=== PATIENT | male | born 1990 | race Caucasian/White ===

== ENCOUNTER 2017-04-10 17:46 | Emergency (ER) | payer SELFPAY ==
[~2017-04-10] VITALS: Ht 175.3 cm; Wt 59.0 kg
[~2017-04-10 17:46] MED LIST: BACTRIM DS 8001 TAB PO; ETODOLAC400 MG PO; FLOMAX 0.4MG C0.4 MG PO; HYDROCODONE1 TABLET PO; KEFLEX500 M1 PO; LORTAB 5/500 501 TAB PO; MOTRIN600 MG PO; NOMEDS; NOMEDS XX; PEN-VK500 MG PO; PHENERGAN 25MG.25 M1 PO; TRAMADOL 50MG T50 MG PO; TYLENOL W/CODEI1 TA2 PO; VICODIN 5/500 T1 TAB PO; VISTARIL25 M1 PO; ZITHROMAX Z PA250 MG PO
--- OUTSIDE RECORDS SUMMARY | 2017-04-10 18:00 | External Medical Summary Rpt | CCD ---
Author Author , JADA Organization JADA Address Unknown Phone [email or web address] Care Team Providers Care Commercial Art Instructor Name Role Phone TRACY LELIA, Unavailable Unavailable TRACY LELIA BLAIR MOLINA, Unavailable Unavailable BLAIR MOLINA [facility], Unavailable Unavailable [facility] CORY MANDUJANO, Unavailable Unavailable CORY MANDUJANO [facility] Unavailable Unavailable INC, [facility] Unavailable Unavailable [facility]ING [facility], [facility] Unavailable Unavailable SERVICES, [facility] OCTAVIO MAS Unavailable Unavailable TERI OCTAVIO MAS Unavailable Unavailable TERI JAYDON DEMETRIO, JAYDON DEMETRIO Unavailable Unavailable ESTER ANGELINA, Unavailable Unavailable ESTER, ANGELINA [id number], Unavailable Unavailable [id number] Unavailable Unavailable [address] # [id number], [facility] [address] # 0393 RUPINDER CANCINO, Unavailable Unavailable BARAK RUPINDER SOKAN, DEANA O, Unavailable Unavailable SOKAN, DEANA O KENNEDY JAYDON DO, Unavailable Unavailable KENNEDY JAYDON DO WEHRMAN III BRANDON, Unavailable Unavailable WEHRMAN III BRANDON Purpose Continuity of Care Document - 07-24-2007 through 2016 Problems Code Diagnosis DOS Provider Status 9779 POISONING 09-20-2014 [place] [facility] DRUG/MEDICI NAL SUBSTANCE 88520 OTHER 09-19-2014 [place] ALTER[place] [address] OTHER 09-19-2014 [place] MALAISE AND MEDICAL FATIGUE [facility] 11738 HEMATURIA 05-18-2014 [place] UNSPECIFIED [facility] 90153 ABDOMINAL 05-18-2014 [place] PAIN, MEDICAL UNSPECIFIED IMAGING ASS SITE 5738 OTHER 05-07-2014 [place] SPECIFIED MEDICAL DISORDERS [facility]AGING ASS OF LIVER 5920 CALCULUS OF 05-07-2014 [place] KIDNEY [facility] 5921 CALCULUS OF 05-07-2014 [place] URETER [facility] 305.1 305.1 07-30-2013 [place] TOBACCO USE [facility] 19428 OSTEOARTHRO 07-30-2013 [place] SIS UNSPEC MEDICAL WHETHER IMAGING ASS GEN/LOCALIZ ED HAND 780.39 780.39 07-30-2013 [place] OTHER [facility] CONVULSIONS [facility] 40658 CLOSED 07-30-2013 [place] FRACTURE OF MEDICAL BASE OF IMAGING ASS THUMB METACARPAL BONE 816.00 816.00 FX 07-30-2013 [place] PHALANX, [facility] HAND NOS-CL Hospital 07306 CLOS 07-30-2013 [place] FRACTURE MEDICAL MID/PROXIMA IMAGING ASS L PHALANX/PHA LANG HAND 8170 MULTIPLE 07-30-2013 [facility] CLOSED EMERGENCY FRACTURES SERVICES OF HAND BONES E0032 ACT INVLV 07-30-2013 [facility] TOBOGGAN & TUBING E849.8 E849.8 07-30-2013 [place] ACCIDENT IN [facility] E885.4 E885.4 07-30-2013 [place] ACCIDENT [facility] DUE TO Hospital SNOWBOARD 6827 CELLULITIS 05-03-2011 [place] TERI AND ABSCESS OF FOOT EXCEPT TOES 8920 OPEN WOUND 05-03-2011 [place] FT NO TOE MEDICAL ALONE IMAGING ASS WITHOUT MENTION COMP 8930 OPEN WOUND 05-03-2011 [place] TERI TOE WITHOUT MENTION COMPLICATIO N E9208 ACC CAUSED 05-03-2011 [place] OT SPEC MEDICAL CUT&PIERCIN IMAGING ASS G INSTRUM/OBJ S V065 NEED 05-03-2011 [facility] INC VACCINATION W/TETANUS-D [facility] 09218 UNSPECIFIED 03-01-2011 [facility] CARIES INC 5259 UNSPECIFIED 03-01-2011 [facility] EMERGENCY TEETH&SUPPO SERVICES RTING STRUCTURES 4659 ACUTE URIS 03-02-2009 [facility] OF EMERGENCY UNSPECIFIED SERVICES SITE ASSOCIATES 2888 OTHER 12-09-2008 THEODORASTAD, SPECIFIED RUPINDER DISEASE OF WHITE BLOOD CELLS 2892 NONSPECIFIC 12-09-2008 BARAK, MESENTERIC [place] [address] ABDOMINAL 12-09-2008 [place] PAIN, LEFT MEDICAL LOWER IMAGING [facility] V1549 OTH PERS HX 10-05-2008 DEPT FOR PUBLIC [facility] PSYCHOLOGIC AL TRAUMA PRS HAZS [facility] 11101 UNSPECIFIED 06-17-2008 [facility] SITE OF [employer] SPRAIN AND STRAIN V202 ROUTINE 09-05-2007 A Bandar LEYVA OR [facility] CHILD HEALTH CHECK F19.10 OTHER PSYCHOACTIV E SUBSTANCE ABUSE, UNCOMPLICAT ED N20.0 CALCULUS OF KIDNEY R10.9 UNSPECIFIED ABDOMINAL PAIN R31.9 HEMATURIA, UNSPECIFIED S20.219A CONTUSION OF UNSPECIFIED FRONT WALL OF THORAX, INIT ENCNTR Z87.442 PERSONAL HISTORY OF URINARY CALCULI Allergies, Adverse Reactions, Alerts Type Drug Allergy Food Allergy Adverse Reaction to Substance Substance Reaction Severity Ibuprofen S-DKJBLP-RLVU/THROAT Severe SHELLFISH (FOOD) I-RASH Intermediate Medications Na ND Rx Da Fi Fi Am Da Di Ph RX Ph St me C No te ll ll ou ys ag ar # ys at rm s nt no ma ic us Or Da si cy ia de te s n re d 00 09 09 6. 1 RI 89 WE Ac 60 -0 -0 00 TE 81 HR ti 33 7- 7- 0 30 MA ve 88 20 20 AI N 12 11 11 D II 8 PH I AR WI MA LL CY IA M 03 E 93 8 # 03 93 AZ 59 09 09 00 6. 5 RI 79 SO Ac IT 76 -0 -2 00 TE 91 KA ti HR 23 8- 4- 0 11 N ve OM 06 20 20 AI BA YC 00 09 09 D BA IN 1 PH TU AR ND 25 M E 0 #3 O MG 93 8 TA BL ET CI 00 06 07 00 14 7 RI 78 SC Ac VA 17 -1 -0 .0 TE 87 HU ti OF 25 8- 2- 00 36 LS ve LO 31 20 20 AI TA XA 26 09 09 D D CI 0 PH CA N AR MP HC M BE L #3 LL 50 93 K 0 8 MG TA B Immunization Name Date Rout CVX Reac Dose Comm Prov Is Faci e tion ent ider Refu lity Give sed n TDAP 11-0 115 MONROE No MONROE 9-20 IGNACIO IGNACIO VACC 11 MEM [facility] INE 7 HOSP HOSP YRS/ INC INC > IM Vital Signs 07-30-2013 14:51 Name Value Interpretat Reference Comment ion Range BP 77 mm[Hg] Diastolic BP Systolic 121 mm[Hg] Procedures Procedure DOS Code Location Performer Comment RADIOLOGI 97346 JYOTHI MOLINA C 5 MEDICAL LELIA EXAMINATI IMAGING [place] [address] JYOTHI MOLINA HEAD/BRAI 5 MEDICAL LELIA N W/O IMAGING CONTRAST ASS MATERIAL RADEX 64812 JYOTHI MOLINA ABDOMEN 1 4 MEDICAL LEL[place] [address] JYOTHI MOLINA ABDOMEN & 4 MEDICAL LELIA PELVIS IMAGING W/O ASS CONTRAST MATERIAL APPLICATI 68228 FLETCHER INTERIANO DEMETRIO ON SHORT 4 EMERGENCY ARM SERVICES SPLINT FOREARM-H AND STATIC RADEX 77439 JYOTHI MOLINA HAND 4 MEDICAL LELIA MINIMUM 3 IMAGING VIEWS ASS RADEX 27085 JYOTHI MOLINA FOOT 1 MEDICAL LELIA COMPLETE IMAGING MINIMUM 3 ASS VIEWS INCISION 37156 TAPIA TAPIA & REMOVAL 1 [facility] FOREIGN BODY SUBQ TISS SIMPLE TDAP 76142 [facility] VACCINE 7 1 MEM H[facility]OS[facility] YRS/> IM INC INC IAADI 75939 [facility] INFLUENZA 9 MEM HOS[facility] MEM [facility]OS[facility] B VIRUS INC INC IAADI 75050 [facility] INFFLUENZ 9 MEM HOS[facility] [place] [address] [facility] STREPTOCO 9 MEM HOSP [facility]OS[facility] CCUS INC INC [facility] G0378 [facility] OBSERVATI 9 MEM HOS[facility] ON INC INC SERVICE PER HOUR OBSERVATI 02934 BARAK CANCINO ON CARE 9 , RUPINDER , RUPINDER DISCHARGE MANAGEMEN T BLOOD 92952 [facility] COUNT 9 MEM H[facility] MEM [facility]OS[facility] COMPLETE INC INC AUTO&AUTO DIFRNTL WBC BLOOD 02094 [facility] COUNT 9 MEM HOS[facility]OS[facility] COMPLETE INC INC AUTO&AUTO DIFRNTL WBC 3D 11670 JYOTHI MOLINA, RENDERING 9 MEDICAL BLAIR IMAGING W/INTERP& ASSOCIATE POSTPROC S DIFF WORK STATION INITIAL 91748 BARAK WALSHATI 9 , RUPINDER BUCIO ON CARE/DAY 50 MINUTES TOBACCO 42090 [facility] USE 9 [facility] HOS[facility] CESSATION INC INC INTERMEDI ATE 3-10 MINUTES URNLS DIP 35508 [facility] 9 [facility] STICK/TAB INC INC LET REAGENT AUTO MICROSCOP Y CT PELVIS 57119 [facility] W/O 9 [facility] H[facility] CONTRAST INC INC [facility] G0378 [facility] OBSERVATI 9 MEM HOS[facility] ON INC INC SERVICE PER HOUR COMPREHEN 79686 [facility] SIVE 9 MEM HOSP [place] [address] [place] TRACY, ABDOMEN 9 MEDICAL BLAIR W/O IMAGING [place] [address] [facility] AMYLASE 9 MEM HOSP [facility] INC INC RADEX 70228 [facility] TRAC[facility], ANKLE 8 MEDICAL BLAIR COMPLETE IMAGING MINIMUM 3 ASSOCIATE VIEWS S APPLICATI 93.54 [facility] JAYDON DO SPLINT Encounters Encounter Start End Date Code Location Performer Type Date Emergency EVELINA Marilee INTERIANO DO (ER) 4 14:41 4 14:55 [facility] EMERGENCY 55563 FLETCHER ATKINSON 4 4 EMERGENCY DEPARTMEN SERVICES T VISIT MODERATE SEVERITY HOSPITAL [facility] - 1 1 [facility] T EMERGENCY 61721 [facility] 1 1 [facility] T VISIT MODERATE SEVERITY EMERGENCY 96518 WILLIE TAPIA 1 1 [facility] VIS[facility] HIGH/URGE NT SEVERITY EMERGENCY 85619 [facility] 1 1 [facility] T VISIT LOW/MODER SEVERITY HOSPITAL [facility] - 1 1 [facility] OUTPATIEN INC T EMERGENCY 77040 FLETCHER MONTES DE OCA 1 1 EMERGENCY III BRANDON DEPARTMEN SERVICES T VISIT MODERATE SEVERITY EMERGENCY 09108 FLETCHER YUSUF, 9 9 EMERGENCY [facility] SERVICES O T VISIT MODERATE ASSOCIATE SEVERITY HOSPITAL [facility] - 9 9 [facility] OUTPATIEN INC T EMERGENCY 93530 [facility] 9 9 [facility] T VISIT LOW/MODER SEVERITY EMERGENCY 86295 [facility] DEPT 9 9 [facility] VISIT INC HIGH SEVERITY& THREAT [facility] - 9 9 [facility] OUTPATIEN INC HOSPITAL [facility] - 8 8 [facility] OUTPATIEN INC T EMERGENCY 22682 [facility] 8 8 [facility] T VISIT LOW/MODER SEVERITY EMERGENCY 90841 JACINTA MANDUJANO, 8 8 [facility] T VISIT ON MODERATE SEVERITY PERIODIC 15868 Wan NORMAN, PREVENTIV 8 8 ALCIRA ALFARO E MED EST PSC PATIENT 12-YRS
--- OUTSIDE RECORDS SUMMARY | 2017-04-10 18:00 | External Medical Summary Rpt | CCD ---
Author Author , JADA Organization JADA Address Unknown Phone [email or web address] Care Team Providers Care Electric Razor Assembler Name Role Phone TRACY LELIA, Unavailable Unavailable TRACY LELIA BLAIR MOLINA, Unavailable Unavailable BLAIR MOLINA [facility], Unavailable Unavailable [facility] CORY MANDUJANO, Unavailable Unavailable CORY MANDUJANO [facility] Unavailable Unavailable INC, [facility] Unavailable Unavailable [facility]ING [facility], [facility] Unavailable Unavailable SERVICES, [facility] OCTAVIO MAS Unavailable Unavailable TERI OCTAVIO MAS Unavailable Unavailable TERI JAYDON DEMETRIO, JAYDON DEMETRIO Unavailable Unavailable ESTER ANGELINA, Unavailable Unavailable ESTER, ANGELINA [id number], Unavailable Unavailable [id number] Unavailable Unavailable [address] # 0393, [facility] [address] # 0393 RUPINDER CANCINO, Unavailable Unavailable BARAK RUPINDER SOKAN, DEANA O, Unavailable Unavailable SOKAN, DEANA O KENNEDY JAYDON DO, Unavailable Unavailable KENNEDY JAYDON DO WEHRMAN III BRANDON, Unavailable Unavailable WEHRMAN III BRANDON Purpose Continuity of Care Document - 07-24-2007 through 2016 Problems Code Diagnosis DOS Provider Status 9779 POISONING 09-20-2014 [place] [facility] DRUG/MEDICI NAL SUBSTANCE 60251 OTHER 09-19-2014 [place] ALTERATION [place] [address] OTHER 09-19-2014 [place] MALAISE AND MEDICAL FATIGUE IM[facility]ING ASS 08271 HEMATURIA 05-18-2014 [place] UNSPECIFIED [facility]ICAL IM[facility]ING ASS 94217 ABDOMINAL 05-18-2014 [place] PAIN, MEDICAL UNSPECIFIED IMAGING ASS SITE 5738 OTHER 05-07-2014 [place] SPECIFIED MEDICAL DISORDERS IMAGING ASS OF LIVER 5920 CALCULUS OF 05-07-2014 [place] KIDNEY [facility] 5921 CALCULUS OF 05-07-2014 [place] URETER [facility] 305.1 305.1 07-30-2013 [place] TOBACCO USE [facility] 58283 OSTEOARTHRO 07-30-2013 [place] SIS UNSPEC MEDICAL WHETHER IMAGING ASS GEN/LOCALIZ ED HAND 780.39 780.39 07-30-2013 [place] OTHER [facility] CONVULSIONS [facility] 39146 CLOSED 07-30-2013 [place] FRACTURE OF MEDICAL BASE OF IMAGING ASS THUMB METACARPAL BONE 816.00 816.00 FX 07-30-2013 [place] PHALANX, [facility] HAND NOS-CL Hospital 58788 CLOS 07-30-2013 [place] FRACTURE MEDICAL MID/PROXIMA IMAGING ASS L PHALANX/PHA LANG HAND 8170 MULTIPLE 07-30-2013 [facility] CLOSED EMERGENCY FRACTURES SERVICES OF HAND BONES E0032 ACT INVLV 07-30-2013 [facility] SLED IMAGING ASS TOBOGGAN & TUBING E849.8 E849.8 07-30-2013 [place] ACCIDENT IN [facility] E885.4 E885.4 07-30-2013 [place] ACCIDENT [facility] DUE TO Hospital SNOWBOARD 6827 CELLULITIS 05-03-2011 TAPIA TERI AND ABSCESS OF FOOT EXCEPT TOES 8920 OPEN WOUND 05-03-2011 [place] FT NO TOE MEDICAL ALONE IMAGING ASS WITHOUT MENTION COMP 8930 OPEN WOUND 05-03-2011 [place] TERI TOE WITHOUT MENTION COMPLICATIO N E9208 ACC CAUSED 05-03-2011 [place] OT SPEC MEDICAL CUT&PIERCIN IMAGING ASS G INSTRUM/OBJ S V065 NEED 05-03-2011 [facility] VACCINATION W/TETANUS-D [facility] 09446 UNSPECIFIED 03-01-2011 [facility] CARIES INC 5259 UNSPECIFIED 03-01-2011 [facility] EMERGENCY TEETH&SUPPO SERVICES RTING STRUCTURES 4659 ACUTE URIS 03-02-2009 [facility] OF EMERGENCY UNSPECIFIED SERVICES SITE ASSOCIATES 2888 OTHER 12-09-2008 THEODORASTAD, SPECIFIED RUPINDER DISEASE OF WHITE BLOOD CELLS 2892 NONSPECIFIC 12-09-2008 BARAK, MESENTERIC [place] [address] ABDOMINAL 12-09-2008 [place] PAIN, LEFT MEDICAL LOWER IMAGING [facility] V1549 OTH PERS HX 10-05-2008 DEPT FOR PUBLIC [facility] PSYCHOLOGIC AL TRAUMA PRS HAZS [facility] 02106 UNSPECIFIED 06-17-2008 [facility] SITE OF [employer] SPRAIN AND STRAIN V202 ROUTINE 09-05-2007 A Bandar LEYVA OR [facility] CHILD HEALTH CHECK F19.10 OTHER PSYCHOACTIV E SUBSTANCE ABUSE, UNCOMPLICAT ED N20.0 CALCULUS OF KIDNEY R10.9 UNSPECIFIED ABDOMINAL PAIN R31.9 HEMATURIA, UNSPECIFIED S20.219A CONTUSION OF UNSPECIFIED FRONT WALL OF THORAX, INIT ENCNTR Z87.442 PERSONAL HISTORY OF URINARY CALCULI Allergies, Adverse Reactions, Alerts Type Drug Allergy Food Allergy Adverse Reaction to Substance Substance Reaction Severity Ibuprofen E-BTAFKE-MGIR/THROAT Severe SHELLFISH (FOOD) I-RASH Intermediate Medications Na [...] 00 14 7 RI 78 SC Ac [place] 17 -1 -0 .0 TE 87 HU [...] Procedure DOS Code Location Performer Comment RADIOLOGI 60418 JYOTHI MOLINA C 5 MEDICAL LELIA EXAMINATI IMAGING [place] [address] JYOTHI MOLINA HEAD/BRAI 5 MEDICAL LELIA N W/O IMAGING CONTRAST ASS MATERIAL RADEX 88414 JYTOHI MOLINA ABDOMEN 1 4 MEDICAL LELIA [place] [address] JYOTHI MOLINA ABDOMEN & 4 MEDICAL LELIA PELVIS IMAGING W/O ASS CONTRAST MATERIAL APPLICATI 14170 FLETCHER INTERIANO DEMETRIO ON SHORT 4 EMERGENCY ARM SERVICES SPLINT FOREARM-H AND STATIC RADEX 47841 JYOTHI MOLINA HAND 4 MEDICAL LELIA MINIMUM 3 IMAGING VIEWS ASS RADEX 56019 JYOTHI MOLINA FOOT 1 MEDICAL LELIA COMPLETE IMAGING MINIMUM 3 ASS VIEWS INCISION 08237 TAPIA TAPIA & REMOVAL 1 [facility] FOREIGN BODY SUBQ TISS SIMPLE TDAP 38449 [facility] VACCINE 7 1 MEM H[facility]OS[facility] YRS/> IM INC INC IAADI 12994 [facility] INFLUENZA 9 [facility] B VIRUS INC INC IAADI 21935 [facility] INFFLUENZ 9 MEM HOS[facility] [place] [address] [facility] STREPTOCO 9 MEM HOSP [facility]OS[facility] CCUS INC INC [facility] G0378 [facility] OBSERVATI 9 [facility] ON INC INC SERVICE PER HOUR OBSERVATI 96212 BARAK CANCINO ON CARE 9 , RUPINDER , RUPINDER DISCHARGE MANAGEMEN T BLOOD 74515 [facility] COUNT 9 [facility] H[facility]OS[facility] COMPLETE INC INC AUTO&AUTO DIFRNTL WBC BLOOD 81561 [facility] COUNT 9 MEM HOS[facility]OS[facility] COMPLETE INC INC AUTO&AUTO DIFRNTL WBC 3D 75245 JYOTHI MOLINA, RENDERING 9 MEDICAL BLAIR IMAGING W/INTERP& ASSOCIATE POSTPROC S DIFF WORK STATION INITIAL 99477 BARAK WALSHATI 9 , RUPINDER BUCIO ON CARE/DAY 50 MINUTES TOBACCO 60779 [facility] USE 9 MEM [facility]OS[facility] CESSATION INC INC INTERMEDI ATE 3-10 MINUTES URNLS DIP 44545 [facility] 9 [facility] STICK/TAB INC INC LET REAGENT AUTO MICROSCOP Y CT PELVIS 16513 [facility] W/O 9 [facility]AST [facility] G0378 [facility] OBSERVATI 9 [facility] ON INC INC SERVICE PER HOUR COMPREHEN 57721 [facility] SIVE 9 [facility] H[facility] [place] [address] [place] TRACY, ABDOMEN 9 MEDICAL BLAIR W/O IMAGING [place] [address] [facility] AMYLASE 9 [facility] HOS[facility] INC INC RADEX 56205 [facility] TRACY, ANKLE 8 MEDICAL BLAIR COMPLETE IMAGING MINIMUM 3 ASSOCIATE VIEWS S APPLICATI 93.54 [facility] JAYDON DO SPLINT Encounters Encounter Start End Date Code Location Performer Type Date Emergency EVELINA Marilee INTERIANO DO (ER) 4 14:41 4 14:55 [facility] EMERGENCY 29041 FLETCHER ATKINSON 4 4 EMERGENCY DEPARTMEN SERVICES T VISIT MODERATE SEVERITY HOSPITAL [facility] - 1 1 [facility] T EMERGENC[facility] 18023 [facility] 1 1 [facility] T VISIT MODERATE SEVERITY EMERGENCY 46374 WILLIE TAPIA 1 1 [facility] VIS[facility] HIGH/URGE NT SEVERITY EMERGENCY 68708 [facility] 1 1 [facility] VISIT LOW/MODER SEVERITY [facility]OSPITAL [facility] - 1 1 [facility] T EMERGENCY 91949 FLETCHER MONTES DE OCA 1 1 EMERGENCY III [facility] DEPARTMEN SERVICES T VISIT MODERATE SEVERITY EMERGENCY 72854 FLETCHER YUSUF, 9 9 EMERGENCY [facility] SERVICES O T VISIT MODERATE ASSOCIATE SEVERITY HOSPITAL [facility] - 9 9 [facility] OUTPATIEN INC T EMERGENCY 57640 [facility] 9 9 [facility] T VISIT LOW/MODER SEVERITY EMERGENCY 90584 [facility] DEPT 9 9 [facility] VISIT INC HIGH SEVERITY& THREAT [facility] - 9 9 [facility] OUTPATIEN INC HOSPITAL [facility] - 8 8 [facility] OUTPATIEN INC T EMERGENCY 94271 [facility] 8 8 [facility] T VISIT LOW/MODER SEVERITY EMERGENCY 15566 JACINTA MANDUJANO, 8 8 [facility] T VISIT ON MODERATE SEVERITY PERIODIC 90902 Wan NORMAN, PREVENTIV 8 8 ALCIRA ALFARO E MED EST PSC PATIENT 12-YRS
--- OUTSIDE RECORDS SUMMARY | 2017-04-10 18:01 | External Medical Summary Rpt | CCD ---
Demographics Preferred Language Libyan Marital Status Unknown Orthodox Affiliation Unknown Race Unknown Ethnic Group Unknown Author Author JADA Address Unknown Phone Immunization No patient found.
--- OUTSIDE RECORDS SUMMARY | 2017-04-10 18:01 | External Medical Summary Rpt ---
Author Author JADA Gibson, [employer] Organization [employer] Address Unknown Phone Unavailable
--- OUTSIDE RECORDS SUMMARY | 2017-04-10 18:01 | External Medical Summary Rpt | CCD ---
Author Author , JADA ELIAS Address Unknown Phone [email or web address] Care Team Providers Care Condenser Winder Name Role Phone TRACY LELIA, Unavailable Unavailable TRACY LELIA BLAIR MOLINA, Unavailable Unavailable [facility]OL[facility]AS [facility], Unavailable [facility]available [facility] CORY MANDUJANO, Unavailable Unavailable CORY MANDUJANO [facility] Un[facility] Unavailable INC, [facility] Unavailable Unavailable [facility]ING [facility], [facility] LAMAR GASTELUM, Unavailable Unavailable LAMAR GASTELUM [facility] Unavailable Unavailable SERVICES, [facility] TAPIA TERI, TAPIA Unavailable Unavailable TERI WILLIE WILLIAMSON TAPIA Unavailable Unavailable TERI JAYDON DEMETRIO, JAYDON DEMETRIO Unavailable Unavailable ANGELINA NORMAN, Unavailable Unavailable ANGELINA NORMAN [id number], Unavailable Unavailable [id number] Unavailable Unavailable [id number] # [id number], [facility] [address] # [id number] RUPINDER CANCINO, Unavailable Unavailable RUPINDER CANCINO SOCINDY, DEANA O, Unavailable Unavailable SOKAN, DEANA O WEHRMAN III BRANDON, Unavailable Unavailable WEHRMAN III BRANDON Purpose Continuity of Care Document - 07-24-2007 through 2016 Problems Code Diagnosis DOS Provider Status 9779 POISONING 09-20-2014 [facility] DRUG/MEDICI NAL SUBSTANCE 31529 OTHER 09-19-2014 [place] ALTERATION [place] [address] OTHER 09-19-2014 [place] MALAISE AND MEDICAL FATIGUE [facility] 72106 HEMATURIA 05-18-2014 [facility] UNSPECIFIED [facility]ING [facility] 72001 ABDOMINAL 05-18-2014 [place] PAIN, MEDICAL UNSPECIFIED IMAGING ASS SITE 5738 OTHER 05-07-2014 [place] SPECIFIED MEDICAL DISORDERS IMAGING ASS OF LIVER 5920 CALCULUS OF 05-07-2014 [facility] 5921 CALCULUS OF 05-07-2014 [facility] 89828 OSTEOARTHRO 07-30-2013 [place] SIS UNSPEC MEDICAL WHETHER IMAGING ASS GEN/LOCALIZ ED HAND 60164 CLOSED 07-30-2013 [place] FRACTURE OF MEDICAL BASE OF IMAGING ASS THUMB METACARPAL BONE 58454 CLOS 07-30-2013 [place] FRACTURE MEDICAL MID/PROXIMA IMAGING ASS L PHALANX/PHA LANG HAND 8170 MULTIPLE 07-30-2013 [facility] CLOSED EMERGENCY FRACTURES SERVICES OF HAND BONES E0032 ACT INVLV 07-30-2013 [facility] SLED IMAGING ASS TOBOGGAN & TUBING 6827 CELLULITIS 05-03-2011 [facility] TERI AND ABSCESS OF FOOT EXCEPT TOES 8920 OPEN WOUND 05-03-2011 [place] FT NO TOE MEDICAL ALONE IMAGING ASS WITHOUT MENTION COMP 8930 OPEN WOUND 05-03-2011 [facility] TERI TOE WITHOUT MENTION COMPLICATIO N E9208 ACC CAUSED 05-03-2011 [place] OTH SPEC MEDICAL CUT&PIERCIN IMAGING ASS G INSTRUM/OBJ S V065 NEED 05-03-2011 [facility]ACCINATION W/[facility]ANUS-[facility] 86478 UNSPECIFIED 03-01-2011 [facility] CARIES INC 5259 UNSPECIFIED 03-01-2011 [facility] EMERGENCY TEETH&SUPPO SERVICES RTING STRUCTURES 4659 ACUTE URIS 03-02-2009 [facility] OF EMERGENCY UNSPECIFIED SERVICES SITE ASSOCIATES 2888 OTHER 12-09-2008 BARAK, SPECIFIED RUPINDER DISEASE OF WHITE BLOOD CELLS 2892 NONSPECIFIC 12-09-2008 BARAK, MESENTER[place] [address] ABDOMINAL 12-09-2008 [place] PAIN, LEFT MEDICAL LOWER IMAGING [facility] V1549 OTH PERS HX 10-05-2008 [facility] PSYCHOLOGIC AL TRAUMA PRS [facility]ZS [facility]TH 14297 UNSPECIFIED 06-17-2008 [facility] SITE OF [employer] SPRAIN AND STRAIN V202 ROUTINE 09-05-2007 Wan ELI INFANT OR PSC CHILD HEALTH CHECK Medications Na ND Rx Da Fi Fi [...] 00 14 7 RI 78 SC Ac NV 17 -1 -0 .0 TE 87 HU [...] HOSP HOSP YRS/ INC INC > IM Procedures Procedure DOS Code Location Performer Comment RADIOLOGI 42829 [place] TR[facility] C 5 MEDICAL LELIA EXAMINATI IMAGING [place] [address] [place] [facility] HEAD/BRAI 5 MEDICAL LELIA N W/O IMAGING CONTRAST ASS MATERIAL RADEX 20621 [place] [facility] ABDOMEN 1 4 MEDICAL LELIA [place] [address] [place] [facility] ABDOMEN & 4 MEDICAL LELIA PELVIS IMAGING W/O ASS CONTRAST MATERIAL RADEX 25891 [place] [facility] HAND 4 MEDICAL LELIA MINIMUM 3 IMAGING VIEWS ASS APPLICATI 10590 [facility] JAYDON DEMETRIO ON SHORT 4 EMERGENCY ARM SERVICES SPLINT FOREARM-H AND STATIC RADEX 11787 [place] [facility] FOOT 1 MEDICAL LELIA COMPLETE IMAGING MINIMUM 3 ASS VIEWS TDAP 22228 [facility] VACCINE 7 1 [facility] YRS/> IM INC INC INCISION 70089 T[facility]IA TAPIA & REMOVAL 1 TERI [facility] [place] [address] [facility] STREPTOCO 9 MEM HOSP [facility] CCUS INC INC GROUP A IAADI 86449 [facility] INFLUENZA 9 [facility] B VIRUS INC INC IAADI 58439 [facility] INFFLUENZ 9 [facility] A A VIRUS INC INC OBSERVATI 82388 [facility] CANCINO ON CARE 9 , RUPINDER , RUPINDER DISCHARGE [facility] G0378 [facility] OBSERVATI 9 [facility] ON INC INC SERVICE PER HOUR BLOOD 76824 [facility] COUNT 9 [facility] COMPLETE INC INC AUTO&AUTO DIFRNTL WBC INITIAL 05334 [facility] CANCINO OBSERVATI 9 , RUPINDER , RUPINDER ON CARE/DAY 50 MINUTES TOBACCO 17513 [facility] USE 9 [facility] CESSATION INC INC INTERMEDI ATE 3-10 MINUTES URNLS DIP 81380 [facility] 9 [facility] STICK/TAB INC INC LET REAGENT AUTO MICROSCOP Y BLOOD 67471 [facility] COUNT 9 [facility] COMPLETE INC INC AUTO&AUTO DIFRNTL [facility] G0378 [facility] OBSERVATI 9 [facility] ON INC INC SERVICE PER HOUR COMPREHEN 25124 [facility] SIVE 9 [facility] [place] [address] [facility] TRACY, ABDOMEN 9 MEDICAL BLAIR W/O IMAGING [place] [address] [facility] AMYLASE 9 [facility] INC INC [place] PELVIS 50979 [facility]OL[facility], W/O 9 MEDICAL BLAIR CONTRAST IMAGING MATERIAL ASSOCIATE S 3D 22089 [facility] MOLINA RENDERING 9 MEDICAL BLAIR IMAGING W/INTERP& ASSOCIATE POSTPROC S DIFF WORK STATION RADEX 87683 [facility] MOLINA, ANKLE 8 MEDICAL BLAIR COMPLETE IMAGING MINIMUM 3 ASSOCIATE VIEWS S Encounters Encounter Start End Date Code Location Performer Type Date EMERGENCY 04775 [facility] INTERIANO DEMETRIO 4 4 EMERGENCY DEPARTMEN SERVICES T VISIT MODERATE SEVERITY EMERGENCY 68043 WILLIE TAIPA [address] [facility] DEPARTMEN T VISIT HIGH/URGE NT SEVERITY EMERGENCY 69394 [facility] 1 1 [facility] DEPARTMEN INC T VISIT MODERATE SEVERITY [facility]OSPITAL [facility] 1 1 [facility] OUTPATIEN INC T EMERGENCY 18712 [facility] 1 1 [facility] DEPARTMEN INC T VISIT LOW/MODER SEVERITY [facility]OSPITAL [facility] - 1 1 [facility] OUTPATIEN INC T EMERGENCY 14709 FLETCHER MONTES DE OCA 1 1 EMERGENCY III [facility] EMERGENCY DEPARTMENT SERVICES T VISIT MODERATE SEVERITY EMERGENCY 69276 [facility] 9 9 [facility] DEPARTMEN INC T VISIT LOW/MODER SEVERITY HOSPITAL [facility] - 9 9 [facility] OUTPATIEN INC T EMERGENCY 00434 [facility] YUSUF, 9 9 [facility] T VISIT MODERATE ASSOCIATE SEVERITY S HOSPITAL [facility] - 9 9 [facility] OUTPATIEN INC T EMERGENCY 72818 [facility] GASTELUM, DEPT 9 9 EMERGENCY DURANT J VISIT SERVICES HIGH SEVERITY& ASSOCIATE THREAT S [facility] - 8 8 [facility] OUTPATIEN INC T EMERGENCY 28032 JACINTA MANDUJANO, 8 8 [facility] T VISIT ON MODERATE SEVERITY EMERGENCY 51114 [facility] 8 8 [facility] T VISIT LOW/MODER SEVERITY PERIODIC 19925 Wan NORMAN, PREVENTIV 8 8 ALCIRA ALFARO E MED EST PSC PATIENT 12-17YRS
--- OUTSIDE RECORDS SUMMARY | 2017-04-10 18:01 | External Medical Summary Rpt | CCD ---
Author Author , JADA ELIAS Address Unknown Phone [email or web address] Care Team Providers Care Senior Investment Manager Name Role Phone TRACY LELIA, Unavailable Unavailable TRACY LELIA BLAIR MOLINA, Unavailable Unavailable [facility] MOLINALAS [facility], Unavailable Unavailable [facility] CORY MANDUJANO, Unavailable Unavailable CORY MANDUJANO [facility] Unavailable Unavailable INC, [facility] Unavailable Unavailable IM[facility]ING [facility], [facility] LAMAR GASTELUM, Unavailable Unavailable LAMAR GASTELUM [facility] Unavailable Unavailable SERVICES, [facility] TAPIA TERI, TAPIA Unavailable Unavailable TEIR WILLIE WILLIAMSON TAPIA Unavailable Unavailable TERI JAYDON DEMETRIO, JAYDON DEMETRIO Unavailable Unavailable ANGELINA NORMAN, Unavailable Unavailable ANGELINA NORMAN [id number], Unavailable Unavailable [id number] Unavailable Unavailable [id number] # 0393, [facility] [address] # 0393 RUPINDER CANCINO, Unavailable Unavailable RUPINDER CANCINO SOCINDY, DEANA O, Unavailable Unavailable SOKAN, DEANA O WEHRMAN III BRANDON, Unavailable Unavailable WEHRMAN III BRANDON Purpose Continuity of Care Document - 07-24-2007 through 2016 Problems Code Diagnosis DOS Provider Status 9779 POISONING 09-20-2014 [facility] DRUG/MEDICI NAL SUBSTANCE 03334 OTHER 09-19-2014 [facility] ALTERATION [place] [address] OTHER 09-19-2014 [facility] MALAISE AND [facility]ICAL FATIGUE [facility]AGING ASS 82612 HEMATURIA 05-18-2014 [facility]PECIF[facility] 41036 ABDOMINAL 05-18-2014 [facility] PAIN, MEDICAL UNSPECIFIED IMAGING ASS SITE 5738 OTHER 05-07-2014 [facility] SPECIFIED MEDICAL DISORDERS IMAGING ASS OF LIVER 5920 CALCULUS OF 05-07-2014 [facility] KIDNEY [facility] 5921 CALCULUS OF 05-07-2014 [facility] 56999 OSTEOARTHRO 07-30-2013 [facility] SIS UNSPEC MEDICAL WHETHER IMAGING ASS GEN/LOCALIZ ED HAND 33283 CLOSED 07-30-2013 [facility] FRACTURE OF MEDICAL BASE OF IMAGING ASS THUMB METACARPAL BONE 55084 CLOS 07-30-2013 [facility] FRACTURE MEDICAL MID/PROXIMA IMAGING ASS L PHALANX/PHA LANG HAND 8170 MULTIPLE 07-30-2013 [facility] CLOSED EMERGENCY FRACTURES SERVICES OF HAND BONES E0032 ACT INVLV 07-30-2013 [facility] SLED IMAGING ASS TOBOGGAN & TUBING 6827 CELLULITIS 05-03-2011 T[facility] TERI AND ABSCESS OF FOOT EXCEPT TOES 8920 OPEN WOUND 05-03-2011 [facility] FT NO TOE MEDICAL ALONE IMAGING ASS WITHOUT MENTION COMP 8930 OPEN WOUND 05-03-2011 [facility] TERI TOE WITHOUT MENTION COMPLICATIO N E9208 ACC CAUSED 05-03-2011 [facility] OTH SPEC MEDICAL CUT&PIERCIN IMAGING ASS G INSTRUM/OBJ S V065 NEED 05-03-2011 [facility] VACCINATION W/TETANUS-D [facility] 70170 UNSPECIFIED 03-01-2011 [facility] CARIES INC 5259 UNSPECIFIED 03-01-2011 [facility] EMERGENCY TEETH&SUPPO SERVICES RTING STRUCTURES 4659 ACUTE URIS 03-02-2009 [facility] OF EMERGENCY UNSPECIFIED SERVICES SITE ASSOCIATES 2888 OTHER 12-09-2008 BARAK, SPECIFIED RUPINDER DISEASE OF WHITE BLOOD CELLS 2892 NONSPECIFIC 12-09-2008 BARAK, MESENTERIC [place] [address] ABDOMINAL 12-09-2008 [facility] PAIN, LEFT MEDICAL LOWER IMAGING [facility] V1549 OTH PERS HX 10-05-2008 [facility] PSYCHOLOGIC AL TRAUMA PRS HAZS HLTH 37150 UNSPECIFIED 06-17-2008 [facility] SITE OF [facility] SPRAIN AND STRAIN V202 ROUTINE 09-05-2007 Wan [...] 00 14 7 RI 78 SC Ac SD 17 -1 -0 .0 TE 87 HU [...] Procedure DOS Code Location Performer Comment RADIOLOGI 07587 [facility] TR[facility] C 5 MEDICAL LELIA EXAMINATI IMAGING [place] [address] [facility] HEAD/BRAI 5 MEDICAL LELIA N W/O IMAGING CONTRAST ASS MATERIAL RADEX 35393 [facility] ABDOMEN 1 4 MEDICAL LELIA [place] [address] [facility] ABDOMEN & 4 MEDICAL LELIA PELVIS IMAGING W/O ASS CONTRAST MATERIAL RADEX 88607 [facility] HAND 4 MEDICAL LELIA MINIMUM 3 IMAGING VIEWS ASS APPLICATI 04731 FLETCHER JAYDON DEMETRIO ON SHORT 4 EMERGENCY ARM SERVICES SPLINT FOREARM-H AND STATIC RADEX 12491 [facility] FOOT 1 MEDICAL LELIA COMPLETE IMAGING MINIMUM 3 ASS VIEWS TDAP 70472 [facility] VACCINE 7 1 [facility] YRS/> IM INC INC INCISION 35241 TAPIA TAPIA & REMOVAL 1 TERI [facility] [place] [address] [facility] STREPTOCO 9 [facility] CCUS INC INC GROUP A IAADI 97208 [facility] INFLUENZA 9 [facility] B VIRUS INC INC IAADI 36061 [facility] INFFLUENZ 9 [facility] A A VIRUS INC INC OBSERVATI 29994 [facility] CANCINO ON CARE 9 , RUPINDER , RUPINDER [facility]GE [facility] G0378 [facility] OBSERVATI 9 [facility] ON INC INC SERVICE PER HOUR BLOOD 54887 [facility] COUNT 9 [facility] COMPLETE INC INC AUTO&AUTO DIFRNTL WBC INITIAL 68664 BARAK CANCINO OBSERVATI 9 , RUPINDER , RUPINDER ON CARE/DAY 50 MINUTES TOBACCO 46783 [facility] USE 9 [facility] CESSATION INC INC INTERMEDI ATE 3-10 MINUTES URNLS DIP 80241 [facility] 9 [facility] STICK/TAB INC INC LET REAGENT AUTO MICROSCOP Y BLOOD 81294 [facility] COUNT 9 [facility] COMPLETE INC INC AUTO&AUTO [facility] G0378 [facility] OBSERVATI 9 [facility] ON INC INC SERVICE PER HOUR COMPREHEN 19769 [facility] SIVE 9 [facility] [place] [address] [facility] TRACY, ABDOMEN 9 MEDICAL BLAIR W/O IMAGING [place] [address] [facility] AMYLASE 9 [facility] INC INC CT PELVIS 04658 [facility] MOLINA, W/O 9 MEDICAL BLAIR CONTRAST IMAGING MATERIAL ASSOCIATE S 3D 84863 [facility] MOLINA RENDERING 9 MEDICAL BLAIR IMAGING W/INTERP& ASSOCIATE POSTPROC S DIFF WORK STATION RADEX 79119 [facility] MOLINA, ANKLE 8 MEDICAL BLAIR COMPLETE IMAGING MINIMUM 3 ASSOCIATE VIEWS S Encounters Encounter Start End Date Code Location Performer Type Date EMERGENCY 08496 FLETCHER INTERIANO DEMETRIO 4 4 EMERGENCY DEPARTMEN SERVICES T VISIT MODERATE SEVERITY EMERGENCY 31189 WILLIE TAPIA 1 1 [facility] DEPARTMEN T VISIT HIGH/URGE NT SEVERITY EMERGENCY 77818 [facility] 1 1 [facility] DEPARTMEN INC T VISIT MODERATE SEVERITY [facility]OSPITAL [facility] - 1 1 [facility] OUTPATIEN INC T EMERGENCY 18299 [facility] 1 1 [facility] DEPARTMEN INC T VISIT LOW/MODER SEVERITY HOSPITAL [facility] - 1 1 [facility] OUTPATIEN INC T EMERGENCY 74969 FLETCHER MONTES DE OCA 1 1 EMERGENCY III [facility] EMERGENCY DEPARTMENT SERVICES T VISIT MODERATE SEVERITY EMERGENCY 53266 [facility] 9 9 [facility] DEPARTMEN INC T VISIT LOW/MODER SEVERITY HOSPITAL [facility] - 9 9 [facility] OUTPATIEN INC T EMERGENCY 63983 [facility]CH[facility] YUSUF, 9 9 [facility] O T VISIT MODERATE ASSOCIATE SEVERITY S HOSPITAL [facility] - 9 9 [facility] OUTPATIEN INC T EMERGENCY 37830 FLETCHER GASTELUM, DEPT 9 9 EMERGENCY CULLMAN J VISIT SERVICES HIGH SEVERITY& ASSOCIATE THREAT S [facility] - 8 8 [facility] OUT[facility] INC T EMERGENCY 52822 JACINTA MANDUJANO, 8 8 [facility] T VISIT ON MODERATE SEVERITY EMERGENCY 95294 [facility] 8 8 [facility] VISIT LOW/MODER SEVERITY PERIODIC 59037 Wan NORMAN, PREVENTIV 8 8 ALCIRA ALFARO E MED EST PSC PATIENT 12-17YRS
--- OUTSIDE RECORDS SUMMARY | 2017-04-10 18:01 | External Medical Summary Rpt | CCD ---
Demographics Preferred Language Nauruan Marital Status Unknown Muslim Affiliation Unknown Race Unknown Ethnic Group Unknown Author Author JADA Address Unknown Phone Immunization No patient found.
[2017-04-10] MEDS ORDERED: KEFLEX 500MG.500 MG PO (18:39)
[2017-04-10] MEDS ORDERED: BACTROBAN2% TP (18:39)
--- NOTE | 2017-04-10 18:40 | Urgent Treatment Center Report ---
History of Present Issue Date/Time Seen by Provider 04/10/17 1831 Visit Reason Pt arrived:Walked Presenting Problem:PT C/O POSSIBLE BOIL ON INNER RT THIGH X1 MONTH Location if Accident: Onset of symptoms date/time:/ or onset unknown for:MEDICAL HX UNKNOWN Have you (or family members/close friends) recently traveled outside the [place]? N If Yes, where/when: Have you had exposure to infectious disease within the past month? TB? Other? Specify: Patient state that he has had a small raised area on the inside of his right thigh State that area has been there for about a month and has come and gone State that area is now red and about the size of a dime and tender to touch States that family found out it was there and made him come in to get checked ALLERGIES Coded Allergies: ibuprofen (Severe, I-HMGFSH-FYBG/THROAT 01/03/16) SHELLFISH (FOOD) (Intermediate, I-RASH ) Home Medications Reported Medications No Home Medications (NO HOME MEDICATIONS) 1 EACH XX ONCE History Medical History General CAD? No Angina: No MS: No Hypertension? No Hyperlipidemia? No CHF? No DVT? No PE? No COPD? No Asthma? No Anemia? No GERD? No Gastric ulcers? No GI Bleed? No Hernia? No Thyroid Problems? No Hypothyroidism? No CVA? No Seizures? Yes Diabetes? No Renal Insuffiency? No UTI? No Stones? No BPH? No GB Disease: No Nephritic Syndrome? No Asplenia? No Hepatitis? No Sickle Cell Disease? No Arthritis? No Migraines? No Cataracts? No Glaucoma? No MRSA? No HIV? No TB? No Anxiety? No Depression? No Cancer? No More? No Immunization HX DT/Tetanus 05/03/11 Flu NEVER Pneumonia NOT SURE Surgical Hx Previous Surgery?Y R INDEX FINGER Family History Family HX Diabetes Yes CAD Yes Hypertension Yes Hyperlipidemia No Cancer Yes TB No Social History Smoking Hx Smoker: Current Every Day Smoker Tobacco: Yes Type Cigarettes Packs/day < 1 Pack Alcohol Alcohol: No Review of Systems All Other Systems Reviewed and Negative Skin other Physical Exam Vital Signs Vital Signs Date Time Temp Pulse Resp B/P Pulse O2 O2 Flow FiO2 Ox Delivery Rate 04/10 1800 98.1 82 20 131/73 96 General Appearance normal appearance, WD/WN, no apparent distress Respiratory Status Yes: trachea midline, chest symmetrical, non tender chest. No: respiratory distress. Cardiovascular normal exam, regular rate/rhythm, no peripheral edema Neurologic alert, normal exam, oriented x 3 Skin small raised area on the inside of his right thigh, no drainage, tender to touch no streaking area marked for easy monitoring Medical Decision Making LABS/Meds/Orders Pt receiving controlled substance in ED? No Departure Departure Time of Disposition 1834 Disposition DC Home or Self Care(routine) Clinical Impression Primary Impression: Boil Condition STABLE Referrals ASHLEY,TAISHA Patient Instructions Boil, DI for Boils Additional Instructions *Start antibiotic(s) immediately and be sure to take as ordered for the FULL length of time although you may be feeling better or start to see improvement in the next 24-48 hours *Monitor closely. Outlined redness so that you can monitor easier. Follow up immediately for new or worsening symptoms including but not limited to redness, swelling, streaking from site fever or chills. *Warm compress 15 minutes 3-4 times day *Never squeeze or pop these on your own. Seek immediate medical attention next time this occurs *Monitor Temp. Tylenol every 4 hours as needed and ibuprofen every 6 hours as needed (as long as your primary care doctor has told you that it is ok to take both. For fever, aches, pain. ER if no less that 101 despite Tylenol and ibuprofen Discharge Counseling Counseled pt/family regarding diagnosis, medications/RX, home care, follow up needs Prescriptions Current Visit Scripts MUPIROCIN 2% (Bactroban Oint) 1 ANUPAM TP BID #1 TUBE CEPHALEXIN (Keflex 500MG Capsule) 500 MG PO Q6H #40 CAP at 1843
[2017-04-10 18:43] VITALS: BP 131/73
== END 2017-04-10 18:44 | disposition home or self-care (01) ==
LOC: UTC 17:46
DX: L02.425 Furuncle of right lower limb (principal); F17.210 Nicotine dependence, cigarettes, uncomplicated